=== PATIENT | male | born 1960 | race Caucasian/White ===

== ENCOUNTER 2018-02-16 15:10 | Emergency (ER) | payer BC, OTHER ==
[~2018-02-16] VITALS: Ht 175.3 cm; Wt 104.5 kg
[2018-02-16 15:43] VITALS: BP 148/93
[2018-02-16] MEDS ORDERED: CLIN300C85 PO (16:41)
== END 2018-02-16 16:52 | disposition home or self-care (01) ==
LOC: ER 15:11
DX: L03.114 Cellulitis of left upper limb (principal); L03.113 Cellulitis of right upper limb; E11.9 Type 2 diabetes mellitus without complications; I11.0 Hypertensive heart disease with heart failure; I50.9 Heart failure, unspecified; J44.9 Chronic obstructive pulmonary disease, unspecified; F17.200 Nicotine dependence, unspecified, uncomplicated; Z88.0 Allergy status to penicillin
CPT/HCPCS: 99283

== ENCOUNTER 2020-03-07 21:21 | Emergency (ER) | payer BC, OTHER ==
[~2020-03-07] VITALS: Ht 175.3 cm; Wt 94.5 kg
[~2020-03-07 21:21] MED LIST: CLIN-97 PO
[2020-03-07] MEDS ORDERED: LORazepam 0.5 MG tablet PO ONE (22:30)
[2020-03-07] MEDS ORDERED: HYDROcodone/acetaminophen 5mg/325mg tablet PO ONE (22:30)
[2020-03-07] MEDS ORDERED: ondansetron 4mg rapidly disintigrating tab PO ONE (22:30)
[2020-03-07 22:43] VITALS: BP 133/107
== END 2020-03-07 22:46 | disposition home or self-care (01) ==
LOC: ER 21:23
DX: S13.9XXA Sprain of joints and ligaments of unspecified parts of neck, initial encounter (principal); I50.9 Heart failure, unspecified; I10 Essential (primary) hypertension; J44.9 Chronic obstructive pulmonary disease, unspecified; E11.9 Type 2 diabetes mellitus without complications; Z88.0 Allergy status to penicillin; Z79.899 Other long term (current) drug therapy; V87.7XXA Person injured in collision between other specified motor vehicles (traffic), initial encounter; Y93.89 Activity, other specified; Y92.89 Other specified places as the place of occurrence of the external cause; Y99.8 Other external cause status
CPT/HCPCS: 72125; 99284

== ENCOUNTER 2023-02-06 16:07 | Emergency (ER) | payer OTHER, SELFPAY ==
[~2023-02-06] VITALS: Ht 175.3 cm; Wt 98.6 kg
[2023-02-06 16:27] VITALS: TEMP 97.7
[2023-02-06 19:24] VITALS: BP 148/90; PULSE 88; RESP 18; O2SAT 96
[2023-02-06] MEDS ORDERED: LIDOcaine 1% W/epiNEPHrine 1:100,000 20ml vial SQ ONE (19:30)
[2023-02-06] MEDS ORDERED: LIDOCAINE 1%/EPI 1:100,000 inj. 10 ML multi-dose vial SQ ONE (19:30)
== END 2023-02-06 19:51 | disposition home or self-care (01) ==
LOC: ER 16:08
DX: S51.011A Laceration without foreign body of right elbow, initial encounter (principal); I11.0 Hypertensive heart disease with heart failure; J44.9 Chronic obstructive pulmonary disease, unspecified; E11.9 Type 2 diabetes mellitus without complications; W18.39XA Other fall on same level, initial encounter; Y93.89 Activity, other specified; Y92.89 Other specified places as the place of occurrence of the external cause; Y99.8 Other external cause status
CPT/HCPCS: 12002; 99282